=== PATIENT | male | born 1995 | race Caucasian/White ===

== ENCOUNTER 2016-05-19 09:12 | Outpatient (CLI) | payer OTHER | END 2016-05-19 09:13 | disposition home or self-care (01) | DX: R10.9 Unspecified abdominal pain (principal); G89.29 Other chronic pain ==

== ENCOUNTER 2018-06-01 10:49 | Outpatient (CLI) | payer OTHER ==
--- NOTE | 2018-06-01 15:38 | XRAY Report ---
Reason: EXERTIONAL SHORTNESS OF BREATH, CHEST PAIN, DULL Procedure Date: 06/01/2018 Accession Number: [id number] / [id number] Procedure: XR - Chest 2 View X-Ray CPT Code: 01267 FULL RESULT: EXAM: CHEST RADIOGRAPHY EXAM DATE: 06/01/2018 11:00 AM. CLINICAL HISTORY: Exertional shortness of breath, chest pain, dull. COMPARISON: None. TECHNIQUE: 2 views. FINDINGS: Lungs/Pleura: No focal opacities evident. No pleural effusion. No pneumothorax. Normal volumes. Mediastinum: Heart and mediastinal contours are unremarkable. Other: None. IMPRESSION: Normal 2-view chest radiography. RAD[facility]
== END 2018-06-01 10:50 | disposition home or self-care (01) ==
LOC: DI 10:49
PROVIDERS: ATTEND Registered Nurse
DX: R06.00 Dyspnea, unspecified (principal); R07.89 Other chest pain
CPT/HCPCS: 71046

== ENCOUNTER 2019-01-10 09:45 | Emergency (ER) | payer OTHER ==
[2019-01-10 09:59] VITALS: BP 168/87
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
[2019-01-10] MEDS ORDERED: HYDROcod/ACETAM 5/325 MG TABLET PO STA (12:53)
[2019-01-10] MEDS ORDERED: NAPROXEN 250 MG TABLET PO STA (12:53)
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
== END 2019-01-10 14:28 | disposition home or self-care (01) ==
LOC: ED 09:45
DX: T70.0XXA Otitic barotrauma, initial encounter (principal); S06.0X0A Concussion without loss of consciousness, initial encounter; S00.03XA Contusion of scalp, initial encounter; V47.5XXA Car driver injured in collision with fixed or stationary object in traffic accident, initial encounter; Y92.410 Unspecified street and highway as the place of occurrence of the external cause
CPT/HCPCS: 70450; 72125; 99284; A9270

== ENCOUNTER 2019-09-12 08:00 | Outpatient (CLI) | payer OTHER ==
[2019-09-12 19:12] LABS: H. PYLORIS ANTIGEN STL POSITIVE (Negative)
== END 2019-09-12 23:59 | disposition home or self-care (01) ==
LOC: LAB.R 08:00
PROVIDERS: ATTEND Family Medicine
DX: R19.7 Diarrhea, unspecified (principal); R10.13 Epigastric pain
CPT/HCPCS: 81599; 83630; 87045; 87046; 87329; 87338; 87493

== ENCOUNTER 2020-07-15 08:00 | Outpatient (CLI) | payer OTHER | END 2020-07-15 23:59 | disposition home or self-care (01) | LOC: LAB.S 08:00 | PROVIDERS: ATTEND Physician Assistant Medical | DX: R07.0 Pain in throat (principal); Z20.822 Contact with and (suspected) exposure to COVID-19 | CPT/HCPCS: 87070; 87077 ==

== ENCOUNTER 2020-10-20 08:00 | Outpatient (CLI) | payer OTHER | END 2020-10-20 23:59 | disposition home or self-care (01) | LOC: LAB.S 08:00 | PROVIDERS: ATTEND Emergency Medicine | DX: R19.7 Diarrhea, unspecified (principal) | CPT/HCPCS: 36415; 81599; 83516; 86003 ==

== ENCOUNTER 2021-08-29 22:45 | Outpatient (CLI) | payer SELFPAY | END 2021-08-29 22:46 | disposition left against medical advice (07) | LOC: EMS 22:45 | DX: R07.89 Other chest pain (principal); F41.9 Anxiety disorder, unspecified ==

== ENCOUNTER 2022-11-29 08:00 | Outpatient (CLI) | payer OTHER ==
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
== END 2022-11-29 23:59 | disposition home or self-care (01) ==
LOC: DI.S 08:00
PROVIDERS: ATTEND Physician Assistant Medical
DX: S20.211A Contusion of right front wall of thorax, initial encounter (principal)